=== PATIENT | male | born 1940 | race Caucasian/White ===

== ENCOUNTER 2018-06-16 18:08 | Emergency (ER) | payer OTHER ==
[2018-06-16 18:27] VITALS: BMI 24.3
--- NOTE | 2018-06-16 18:57 | PDOC ---
History of Present Illness - General Chief Complaint: Injury Stated Complaint: FALL Time Seen by Provider: 06/16/18 18:26 History Source: Patient, EMS Exam Limitations: No Limitations - History of Present Illness Initial Comments: 06/16/18 18:47 This is an 78 YOM with h/o bladder CA (prior surgery), prior craniotomy for "bleeding in the brain" from multiple falls, HTN, and CAD (states 3 vessels blocked and was supposed to have surgery on 06/21/18), and chronic unsteadiness on his feet (uses walker) who was BIBEMS for fall at his [facility]. He notes attempting to reach up and put something into a cabinet when he lost his balance (states possible d/t dizziness but he cannot remember exactly) and fell backwards hitting the right side of his face and the back of his head on the right. He notes a headache to the area that sustained the blow, but notes also that he always gets headaches at night. He denies recent f/c/n/v/d/c, n/t/w focally, vision changes, room-spinning dizziness, neck pain, or worsened difficulty thinking clearly or walking. He does not believe he passed out. He has suffered multiple falls in the past few months - more than his prior baseline. He does not know why this might be. His PCP is Jamie Colby, temporary [facility] provider is Dr. Thomas. He has been in the [facility] since the beginning of this month. Past History - Past Medical History Allergies/Adverse Reactions: Allergies Allergy/AdvReac Type Severity Reaction Status Date / Time hydralazine Allergy Verified 06/16/18 18:22 Home Medications: Ambulatory Orders Amlodipine Besylate 2.5 mg PO DAILY 06/16/18 Docusate Sodium 100 mg PO DAILY 06/16/18 Duloxetine HCl 20 mg PO HS 06/16/18 Enalapril Maleate [Vasotec] 10 mg PO DAILY 06/16/18 Ergocalciferol (Vitamin D2) [Vitamin D2] 50,000 unit PO WEEKLY 06/16/18 Famotidine 20 mg PO BID 06/16/18 Insulin Lispro [Humalog] 100 unit SQ ASDIR 06/16/18 Metoprolol Succinate 25 mg PO DAILY 06/16/18 Pregabalin [Lyrica] 25 mg PO Q8H 06/16/18 Sennosides [Senna] 8.6 mg PO DAILY 06/16/18 COPD: No Diabetes: Yes HTN: Yes - Suicide/Smoking/Psychosocial Hx Smoking History: Never smoked Have you smoked in the past 12 months: No Information on smoking cessation initiated: No Hx Alcohol Use: No Drug/Substance Use Hx: No Review of Systems - Review of Systems Able to Perform ROS?: Yes Constitutional: No: Chills, Fever, Unexplained wgt Loss HEENTM: No: Nose Congestion, Throat Pain Respiratory: No: Cough, Shortness of Breath Cardiac (ROS): No: Chest Pain, Palpitations ABD/GI: No: Constipated, Diarrhea, Nausea, Vomiting : No: Burning, Dysuria Musculoskeletal: No: Back Pain, Neck Pain Integumentary: No: Bruising, Rash Neurological: Yes: Headache, Other (loss of balance). No: Numbness, Tingling, Weakness Endocrine: No: Unexplained Weight Gain, Unexplained Weight Loss *Physical Exam - Vital Signs Last Vital Signs Temp Pulse Resp BP Pulse Ox 98.6 F 87 20 114/89 100 06/16/18 18:22 06/16/18 18:22 06/16/18 18:22 06/16/18 18:22 06/16/18 18:22 06/16/18 18:58 TRAUMA ASSESSMENT: protecting airway, equal bilateral breath sounds, no flail chest, abdomen soft, pelvis stable, no thigh hematoma, no step-off or deformity or ttp of C/T/L spine, no back hematoma, PERRLA, moving all extremities, no cephalohematoma, no raccoon eyes, no carreon sign, no hemotympanum on the right, cerumen occlusion of EAC on the left obstructing my view of the TM, no CSF rhinorrhea/otorrhea, no jaw malocclusion, negative tongue blade test. There are small abrasions to right ear lobe. There is a prior right temporal and parietal craniotomy scar which is healing well. GENERAL: nontoxic and well-appearing, nourished, A/Ox4, no acute distress, speaking in full sentences, answers questions appropriately HEENT: PERRLA, EOMI, moist mucous membranes, no posterior pharyngeal erythema, no tonsillar swelling or exudates, no cervical lymphadenopathy NECK: No midline ttp, no spinal stepoff or deformity, full ROM, supple CARDIOVASCULAR: Regular rate and rhythm, normal S1S2, no MGR, radial and DP pulses 2+ and symmetric, capillary refill <2 seconds, extremities warm and well- perfused Chest wall: Normal appearance, no rash, no bruising, no costal stepoff or deformity, nontender to compression LUNGS/RESPIRATORY: No respiratory distress, normal and symmetric chest movements during respirations, lungs CTA bilaterally, equal breath sounds, no cyanosis, no nail clubbing GI/ABDOMEN: Normal symmetric appearance, normoactive bowel sounds, soft, no tenderness to palpation, no midline pulsatile masses, no palpated organomegaly : No CVA tenderness BACK: No midline ttp or stepoff or deformity of thoracic or lumbar spine EXTREMITIES: distal pulses 2+, warm and well-perfused, no LE edema SKIN: Warm and dry, no pallor, no jaundice, no bruising, no rash, no skin breakdown, no cuts, no lesions NEUROLOGICAL: GCS 15, CN II-XII grossly intact, no truncal ataxia, gait is not tested, moving all extremities, 5/5 strength proximally and distally, no facial droop, no decreased sensation Medical Decision Making - Medical Decision Making 06/16/18 19:28 Pt p/w fall and head injury. Initial Vital Signs Temp Pulse Resp BP Pulse Ox 98.6 F 87 20 114/89 100 06/16/18 18:22 06/16/18 18:22 06/16/18 18:22 06/16/18 18:22 06/16/18 18:22 Exam: As noted in Physical Exam section DDX IBNLT: scalp contusion, simple abrasions, concussion, ICH, skull fracture, facial bone fracture W/U ordered: Head CT TX ordered: None at this time. Per [facility] C-spine imaging rule, C-spine XR is not indicated. 06/16/18 21:20 I spoke with Radiologist Dr. Hemphill. The patient has moderate-large bilateral chronic/subacute subdural hematomas. There is also a possible acute component to the SDH's as there is some stranding within the SDH areas. Minimal midline shift. 06/16/18 22:48 I spoke with [facility] neurosurgeon conventional mortgage underwriter, in agreement patient to be transferred to [facility] ED. Neurosurgeon Dr. Stuart accepts in transfer. I spoke with Dr. Martell in the [facility] ED. Patient to be sent via ALS per [facility] coordinating transfer. *DC/Admit/Observation/Transfer Diagnosis at time of Disposition: Subdural hematoma Fall Qualifiers: Encounter type: initial encounter Qualified Code(s): W19.XXXA - Unspecified fall, initial encounter Headache Qualifiers: Headache type: unspecified Headache chronicity pattern: unspecified pattern Intractability: not intractable Qualified Code(s): R51 - Headache - Discharge Dispostion Disposition: TRANSFER ACUTE CARE/OTHER HOSP Condition at time of disposition: Guarded - Referrals Referrals: Christopher Thomas MD [Non Staff, Medical] - - Patient Instructions - Post Discharge Activity - Transfer to Acute Care Facility Receiving Facility: [facility] Accepting Physician:: Dr. Stuart, Dr. Benito NIH Stroke Scale - Last Known Well Date/Time & Onset Date Last Known Well: 06/16/18 Time Last Known Well: 17:30 - Initial Evaluation Level of consciousness: Alert Ask patient the month and their age: Answers both correctly Ask patient to open & close eyes; make fist and let go: Obeys both correctly Best gaze (horizontal eye movement): Normal Visual field testing: No visual field loss Facial paresis (Show teeth/raise eyebrows/close eyes tight): Normal symmetrical movement Motor Function: Left Arm: Normal Motor Function: Right Arm: Normal (extends arm 90 (or 45) degrees for 10 seconds without drift Motor Function: Left Leg: Normal (extends leg 30 degrees for 5 seconds without drift) Motor Function: Right Leg: Normal (extends leg 30 degrees for 5 seconds without drift) Limb Ataxia: No ataxia Sensory(Use pinprick test arms,legs,trunk,face/side to side): Normal Best language (Describe picture, name items, read sentences): No Aphasia Dysarthria (read several words): Normal articulation Extinction and Inattention: No abnormality - Total Score NIH Stroke Scale Score: 0
[2018-06-16] MEDS ORDERED: SODIUM CHLORIDE 0.9% 500 ML INFUS.BAG IV ONE (19:07)
--- NOTE | 2018-06-16 20:21 | PDOC ---
Attending Attestation - Resident Resident Name: Fatmata Storm - ED Attending Attestation I have performed the following: I have examined & evaluated the patient, The case was reviewed & discussed with the resident, I agree w/resident's findings & plan, Exceptions are as noted - HPI HPI: 06/16/18 20:14 78-year-old male with history of bladder cancer, prior craniotomy for intracranial hemorrhage from multiple falls, hypertension, coronary disease presents with mechanical fall. The patient had loss his balance and fell and hit the right side of his head. Sustained a small abrasion to right ear lobe. No loss of conscious. Patient denies headache and otherwise feels well. [facility]. Patient has no complaints at this time. - Physicial Exam PE: 06/16/18 20:14 GENERAL: Awake, alert, and fully oriented, in no acute distress HEAD: No signs of trauma. Small abrasion to right ear lobe. No raccoon eyes. No carreon sign. No loose teeth. EYES: EOMI, sclera anicteric, conjunctiva clear ENT: Auricles normal inspection, hearing grossly normal, nares patent, oropharynx clear without exudates. Moist mucosa NECK: Normal ROM, supple. no c-spine tenderness. LUNGS: Breath sounds equal, clear to auscultation bilaterally. No wheezes, and no crackles HEART: Regular rate and rhythm, normal S1 and S2, no murmurs, rubs or gallops ABDOMEN: Soft, nontender, No guarding, no rebound. No masses EXTREMITIES: Normal range of motion, no edema. No clubbing or cyanosis. No cords, erythema, or tenderness NEUROLOGICAL: Cranial nerves II through XII grossly intact. Normal speech SKIN: Warm, Dry, normal turgor, no rashes or lesions noted. - Medical Decision Making 06/16/18 20:21 Vital Signs Temp Pulse Resp BP Pulse Ox 98.6 F 87 20 114/89 100 06/16/18 18:22 06/16/18 18:22 06/16/18 18:22 06/16/18 18:22 06/16/18 18:22 Pt well-appearing. +mechanical fall. Given age, fails palauan head CT rules. Obtain head Ct. If CT negative for acute process, pt can be sent back to [place]. 06/16/18 22:15 CAT scan demonstrates large right-sided moderate to large left-sided pain has flared subdural hematomas which are chronic or late subacute. There is a small amount of acute blood within each subdural fluid collection. There is an associated effacement of the frontoparietal sulki bilaterally. Consult neurosurgery. 06/16/18 22:57 Dr. Storm consulted [facility] Neurosurg. They will accept patient back to [facility].
[2018-06-16] MEDS ORDERED: ACETAMINOPHEN 325 MG TABLET (FP) ONE (22:21)
[2018-06-17 00:03] VITALS: BP 137/70; PULSE 74; TEMP 98
== END 2018-06-17 00:11 | disposition short-term general hospital (02) ==
LOC: JER 18:08
DX: S06.5X9A Traumatic subdural hemorrhage with loss of consciousness of unspecified duration, initial encounter (principal); S00.411A Abrasion of right ear, initial encounter; W18.39XA Other fall on same level, initial encounter; Y93.89 Activity, other specified; Y92.122 Bedroom in nursing home as the place of occurrence of the external cause; Y99.8 Other external cause status; Z91.81 History of falling; R26.81 Unsteadiness on feet; I10 Essential (primary) hypertension; E11.9 Type 2 diabetes mellitus without complications; Z79.4 Long term (current) use of insulin; R26.89 Other abnormalities of gait and mobility; Z99.89 Dependence on other enabling machines and devices; Z85.51 Personal history of malignant neoplasm of bladder; I25.10 Atherosclerotic heart disease of native coronary artery without angina pectoris; Z87.820 Personal history of traumatic brain injury
CPT/HCPCS: 70450-TC; 71045-TC-FY; 99285-25

== ENCOUNTER 2018-08-01 04:01 | Observation (INO) | payer OTHER ==
--- NOTE | 2018-08-01 04:19 | PDOC ---
Attending Attestation - Resident Resident Name: Fatou Villar - ED Attending Attestation I have performed the following: I have examined & evaluated the patient, The case was reviewed & discussed with the resident, I agree w/resident's findings & plan, Exceptions are as noted - HPI HPI: 08/01/18 05:03 Mr Vicente is an 78 yo M with h/o bladder CA (prior surgery), h/o multiple falls and head trauma s/p ICH requiring craniotomy, s/p recent presentation to this ER where he was found to have a large subdural hematoma (transferred to [facility] where pt refused surgical intervention), h/o HTN and CAD (has known 3 vessel disease ? plan for CABG who was BIBEMS s/p fall at [facility]. He awoke at 4am and was attempting to get to the bathroom He slipped and fell backwards, striking his head on a night stand No LOC No amnesia He was unable to get himself up Staff at facility alerted EMS 08/01/18 05:03 - Physicial Exam PE: 08/01/18 05:07 GENERAL: pt is awake and alert, answers questions appropriately HEENT: PERRLA, EOMI NECK: No midline ttp, no spinal stepoff or deformity, full ROM, supple CARDIOVASCULAR: Regular rate and rhythm, normal S1S2, no MGR, Chest wall: Normal appearance, no rash, no bruising, no costal stepoff or deformity, nontender to compression LUNGS/RESPIRATORY: No respiratory distress, normal and symmetric chest movements during respirations, lungs CTA bilaterally GI/ABDOMEN: Normal symmetric appearance, normoactive bowel sounds, soft BACK: No midline ttp or stepoff or deformity of thoracic or lumbar spine EXTREMITIES: distal pulses 2+, warm and well-perfused, no LE edema SKIN: (+) 3cm laceration to the occipital scalp, no active bleeding, wound is scabbed NEUROLOGICAL: GCS 15, CN II-XII grossly intact, gait is not tested, moving all extremities, 5/5 strength proximally and distally, no facial droop - Medical Decision Making 08/01/18 05:08 Pt has a h/o multiple falls Prior ICH x 2 (one for which pt had surgical intervention) Pt presents s/p mechanical fall with evidence of head injury Will do: Basic labs, including trop (pt per charting was supposed to have CABG) Head CT - eval for ICH Staple ?Boostrix 08/01/18 05:58 HISTORY: Fall with head trauma COMPARISON: None. FINDINGS: Vertebral bodies appear normal with no fracture There is some reversal of the normal lordotic curvature Airway is intact Soft Tissues are normal 08/01/18 05:59 Laboratory Tests 08/01/18 05:15 WBC 5.6 Hgb 10.6 L Hct 33.3 L Plt Count 388 08/01/18 06:16 FINDINGS: The study is positive for bilateral subdural hematomas. Right-sided subdural hematoma measures 1.4 cm lateral to the right frontal lobe and 1.5 cm lateral to the right parietal lobe. There is mixed density. Left subdural hematoma measures 8 mm transversely lateral to the temporal lobe and contains high and low-density components. There is been a previous right craniotomy. There is no deviation of midline structures. Ventricles are normal in caliber. IMPRESSION: Bilateral subdural hematomas status post craniotomy. Comparison with prior studies is recommended to evaluate for change Consult NSGY Pt is neurologically intact Review of prior CT reveals bilateral subdural hematomas Pt meds reviewed - no anticoagulants or anti platelets 08/01/18 06:17 08/01/18 06:[address] being sent for comparison Signed out pending review of prior CT
[2018-08-01] MEDS ORDERED: LIDOCAINE HCL 1%, 10 MG/ML (50 mL VIAL) SQ ONE (04:45)
[2018-08-01] MEDS ORDERED: DIPHTH,PERTUSS(ACELL),TET 0.5 ML DISP.SYRIN IM ONE ×2 (04:47→05:41)
[2018-08-01] MEDS ORDERED: LIDOCAINE 1%/EPI 1:100000 (20 ML MULTI DOSE VIAL) ONE (04:49)
[2018-08-01] MEDS ORDERED: ACETAMINOPHEN 325 MG TABLET (FP) PO ONE (04:59)
[2018-08-01] MEDS ORDERED: ACETAMINOPHEN 325 MG TABLET (FP) ONE (05:00)
--- NOTE | 2018-08-01 05:15 | PDOC ---
History of Present Illness - General Chief Complaint: Injury Stated Complaint: FALL Time Seen by Provider: 08/01/18 04:13 - History of Present Illness Initial Comments: 08/01/18 05:54 Patient is an 78 year old male with past medical history of Bladder cancer (s/p tumor resection), "brain bleed" from falls s/p craniectomy, HTN and CAD, was [facility]IBEMS from [facility], presented with right occipital scalp laceration after an unwitnessed fall at 3am this morning. Patient reported he tried to go the bathroom, where he slipped and fell, hitting his head on the night table. He denies loss of consciousness. A nurse immediately came and saw him on the floor to help him up. Ambulance was called. Patient was recently seen in 06/16 after a fall where he was found to have a moderate-large bilateral chronic/subacute subdural hematomas on CT scan. He was transferred to [facility], where patient declined surgery. Patient reports pain in the wound area, but denies any dizziness, confusion, weakness, shortness of breath. Past History - Past Medical History Allergies/Adverse Reactions: Allergies Allergy/AdvReac Type Severity Reaction Status Date / Time hydralazine Allergy Verified 08/01/18 05:24 Home Medications: Ambulatory Orders Amlodipine Besylate 5 mg PO DAILY 06/16/18 Docusate Sodium 300 mg PO HS 06/16/18 Duloxetine HCl 60 mg PO DAILY 06/16/18 Enalapril Maleate [Vasotec] 10 mg PO BID 06/16/18 Ergocalciferol (Vitamin D2) [Vitamin D2] 50,000 unit PO TH 06/16/18 Famotidine 20 mg PO BID 06/16/18 Metoprolol Succinate 25 mg PO DAILY 06/16/18 Sennosides [Senna] 8.6 mg PO HS 06/16/18 Acetaminophen [Tylenol -] 1,000 mg PO TID PRN 08/01/18 Amitriptyline HCl [Elavil -] 10 mg PO HS 08/01/18 Atorvastatin Ca [Lipitor] 80 mg PO HS 08/01/18 Mag Hydrox/Al Hydrox/Simeth [Mylanta Suspension -] 15 ml PO Q8H PRN 08/01/18 Magnesium Hydroxide [Milk of Magnesia] 15 ml PO Q6H PRN 08/01/18 Oxybutynin Chloride [Ditropan Xl] 5 mg PO TID 08/01/18 Polyethylene Glycol 3350 [Miralax (For Daily Use) -] 17 gm PO DAILY 08/01/18 Risperidone 1 mg PO BID 08/01/18 Tamsulosin HCl [Flomax] 0.4 mg PO HS 08/01/18 COPD: No Diabetes: Yes HTN: Yes - Suicide/Smoking/Psychosocial Hx Smoking History: Never smoked Have you smoked in the past 12 months: No Hx Alcohol Use: No Drug/Substance Use Hx: No Review of Systems - Review of Systems Constitutional: No: Chills, Fever, Malaise, Weakness HEENTM: No: Blurred Vision, Ear Pain, Nose Congestion, Difficulty Swallowing Respiratory: No: Cough, Shortness of Breath Cardiac (ROS): No: Chest Pain, Lightheadedness ABD/GI: No: Abdominal Distended, Constipated, Diarrhea, Nausea, Vomiting : No: Burning, Dysuria Musculoskeletal: No: Back Pain, Neck Pain Neurological: Yes: See HPI. No: Numbness, Seizure, Tingling, Weakness *Physical Exam - Vital Signs Last Vital Signs Temp Pulse Resp BP Pulse Ox 98.1 F 67 19 113/67 99 08/01/18 04:01 08/01/18 04:01 08/01/18 04:01 08/01/18 04:01 08/01/18 04:01 - Physical Exam Comments: 08/01/18 05:55 General: awake, alert, oriented, not in acute distress Head: +3cm laceration at right occipital area of the scalp HEENT: PERRLA, EOMI, sclerae anicteric, Neck:soft, supple, trachea midline, without LAD Lung:clear to auscultation bilaterally Heart: regular rate and rhythm, normal S1/S2, +systolic murmur Abdomen: soft, nontender, nondistended, NABS Ext: +2 pulses, no peripheral edema Neuro: AAOx4, CN II-XII intact, motor strength 5/5 on all extremities, sensation intact, normal FTNT, normal speech, gait not observed. Moderate Sedation - Procedure Monitoring Vital Signs: Procedure Monitoring Vital Signs Temperature 98.1 F 08/01/18 04:01 Pulse Rate 67 08/01/18 04:01 Respiratory Rate 19 12/04/18 04:01 Blood Pressure 113/67 12/04/18 04:01 O2 Sat by Pulse Oximetry (%) 99 08/01/18 04:01 Procedures - Laceration/Wound Repair Head Wound Length: 2.6 to 5.0 cm Wound Explored: clean Wound's Depth, Shape: superficial, linear Irrigated w/ Saline: Yes Betadine Prep: No Anesthesia: 1% Lidocaine w/ Epi Wound Debrided: moderate Wound Repaired With: Yina (3 iyna) ED Treatment Course - LABORATORY CBC & Chemistry Diagram: 08/01/18 05:15 08/01/18 05:15 Medical Decision Making - Medical Decision Making 08/01/18 05:04 Patient is an 78 year old male with past medical history of Bladder cancer (s/p tumor resection), "brain bleed" from falls s/p craniectomy, HTN and CAD, was BIBEMS from [facility], presented with right occipital scalp laceration after an unwitnessed fall at 3am this morning. CBC, CMP, PT/INR, trop Head CT without contrast Cervical CT without contrast Tylenol for pain 08/01/18 05:49 Laceration cleaned and stapled close, 3 yina placed Boostrix 0.5ml IM 08/01/18 06:44 Was able to speak with the radiologist on imaging spinal surgeon. Reported large subdural hematoma. He was unable to compare it with the old report in May. Head CT reports sent back again to be re-read and compared. For neurosurgery consult. Re-assessed patient. States he is feeling well and is asking for food to eat. Will keep NPO for now until cleared. *DC/Admit/Observation/Transfer - Referrals Referrals: Manish Winchester MD [Primary Care Provider] - - Patient Instructions - Post Discharge Activity
[2018-08-01 05:37] LABS: BASO % 1.3 % (0-2.0); HEMATOCRIT 33.3 % (35.4-49); HEMOGLOBIN 10.6 GM/dL (11.7-16.9); MCH 28.1 pg (25.7-33.7); MCHC 31.8 g/dl (32.0-35.9); MEAN CELL VOLUME 88.3 fl (80-96); MONO % 9.6 % (3.8-10.2); NEUT % 60.1 % (42.8-82.8); PLATELET COUNT 388 K/MM3 (134-434); RBC 3.77 M/mm3 (4.00-5.60); RDW 19.6 % (11.9-15.9); WHITE BLOOD COUNT 5.6 K/mm3 (4.0-10.0)
[2018-08-01 06:01] LABS: INR 1.1 (0.83-1.09)
[2018-08-01 06:24] LABS: ALK PHOS 191 U/L (45-117); ANION GAP 8 MMOL/L (8-16); BILIRUBIN,TOTAL 0.4 mg/dL (0.2-1); BLOOD UREA NITROGEN 17 mg/dL (7-18); CALCIUM 9.1 mg/dL (8.5-10.1); CHLORIDE 99 mmol/L (98-107); CO2 26 mmol/L (21-32); GLUCOSE,RANDOM 115 mg/dL (74-106); POTASSIUM 4.8 mmol/L (3.5-5.1); SGOT/AST 26 U/L (15-37); SGPT/ALT 20 U/L (13-61); SODIUM 133 mmol/L (136-145); TOT PROT 7.1 g/dl (6.4-8.2)
--- NOTE | 2018-08-01 07:08 | PDOC ---
*Physical Exam - Vital Signs Last Vital Signs Temp Pulse Resp BP Pulse Ox 98 F 71 17 112/65 99 08/01/18 13:08 08/01/18 13:08 08/01/18 13:08 08/01/18 13:08 08/01/18 07:30 <Penny Oswald - Last Filed: 08/01/18 15:35> - Vital Signs Last Vital Signs Temp Pulse Resp BP Pulse Ox 98.1 F 67 19 113/67 99 08/01/18 04:01 08/01/18 04:01 08/01/18 04:01 08/01/18 04:01 08/01/18 04:01 <Rebecca Rivas - Last Filed: 08/01/18 18:09> ED Treatment Course - LABORATORY CBC & Chemistry Diagram: 08/01/18 05:15 08/01/18 05:15 - ADDITIONAL ORDERS Additional order review: Laboratory Results 08/01/18 08/01/18 05:15 05:15 PT with INR 13.00 INR 1.10 H Sodium 133 L Potassium 4.8 Chloride 99 Carbon Dioxide 26 Anion Gap 8 BUN 17 Creatinine 1.0 Creat Clearance w eGFR > 60 Random Glucose 115 H Calcium 9.1 Total Bilirubin 0.4 AST 26 ALT 20 Alkaline Phosphatase 191 H Creatine Kinase 66 Troponin I 0.02 Total Protein 7.1 Albumin 3.0 L 08/01/18 05:15 RBC 3.77 L MCV 88.3 MCHC 31.8 L RDW 19.6 H MPV 7.0 L Neutrophils % 60.1 Lymphocytes % 24.0 Monocytes % 9.6 Eosinophils % 5.0 H Basophils % 1.3 - Medications Given in the ED: ED Medications Discontinued Medications Generic Name Dose Route Start Last Admin Trade Name Freq PRN Reason Stop Dose Admin Acetaminophen 975 mg 08/01/18 04:59 08/01/18 05:12 Tylenol - PO 08/01/18 05:00 975 mg ONCE ONE Administration Diphtheria/Tetanus/Acell Pertussis 0.5 ml 08/01/18 04:47 08/01/18 05:48 Boostrix - IM 08/01/18 04:48 0.5 ml .ONCE ONE Administration Lidocaine HCl 3 ml 08/01/18 04:45 08/01/18 05:12 Xylocaine 1% SQ 08/01/18 04:46 3 ml ONCE ONE Administration <Penny Oswald - Last Filed: 08/01/18 15:35> - LABORATORY CBC & Chemistry Diagram: 08/01/18 05:15 08/01/18 05:15 - ADDITIONAL ORDERS Additional order review: Laboratory Results 08/01/18 08/01/18 05:15 05:15 PT with INR 13.00 INR 1.10 H Sodium 133 L Potassium 4.8 Chloride 99 Carbon Dioxide 26 Anion Gap 8 BUN 17 Creatinine 1.0 Creat Clearance w eGFR > 60 Random Glucose 115 H Calcium 9.1 Total Bilirubin 0.4 AST 26 ALT 20 Alkaline Phosphatase 191 H Creatine Kinase 66 Troponin I 0.02 Total Protein 7.1 Albumin 3.0 L 08/01/18 05:15 RBC 3.77 L MCV 88.3 MCHC 31.8 L RDW 19.6 H MPV 7.0 L Neutrophils % 60.1 Lymphocytes % 24.0 Monocytes % 9.6 Eosinophils % 5.0 H Basophils % 1.3 - Medications Given in the ED: ED Medications Discontinued Medications Generic Name Dose Route Start Last Admin Trade Name Terri PRN Reason Stop Dose Admin Acetaminophen 975 mg 08/01/18 04:59 08/01/18 05:12 Tylenol - PO 08/01/18 05:00 975 mg ONCE ONE Administration Diphtheria/Tetanus/Acell Pertussis 0.5 ml 08/01/18 04:47 08/01/18 05:48 Boostrix - IM 08/01/18 04:48 0.5 ml .ONCE ONE Administration Lidocaine HCl 3 ml 08/01/18 04:45 08/01/18 05:12 Xylocaine 1% SQ 08/01/18 04:46 3 ml ONCE ONE Administration <Rebecca Rivas - Last Filed: 08/01/18 18:09> Medical Decision Making - Medical Decision Making 08/01/18 13:[address] Kilgore was sent via phone service. 08/01/18 15:35 Third call made to Dr. Kilgore, message left on office voicemail. <Penny Oswald - Last Filed: 08/01/18 15:35> - Medical Decision Making 08/01/18 07:04 78 year old male with history of traumatic subdural hematoma brought to ED for fall. Initial Vital Signs Temp Pulse Resp BP Pulse Ox 98.1 F 67 19 113/67 99 08/01/18 04:01 08/01/18 04:01 08/01/18 04:01 08/01/18 04:01 08/01/18 04:01 Initial vital signs within normal limits. Pt presented alert and orientedx3, neurologically intact. He only complained of headache. He denied LOC, vomiting. CBC WBC 5.6 K/mm3 (4.0-10.0) 08/01/18 05:15 RBC 3.77 M/mm3 (4.00-5.60) L 08/01/18 05:15 Hgb 10.6 GM/dL (11.7-16.9) L 08/01/18 05:15 Hct 33.3 % (35.4-49) L 08/01/18 05:15 MCV 88.3 fl (80-96) 08/01/18 05:15 MCH 28.1 pg (25.7-33.7) 08/01/18 05:15 MCHC 31.8 g/dl (32.0-35.9) L 08/01/18 05:15 RDW 19.6 % (11.9-15.9) H 08/01/18 05:15 Plt Count 388 K/MM3 (134-434) 08/01/18 05:15 MPV 7.0 fl (7.5-11.1) L 08/01/18 05:15 Absolute Neuts (auto) 3.4 K/mm3 (1.5-8.0) 08/01/18 05:15 Neutrophils % 60.1 % (42.8-82.8) 08/01/18 05:15 Lymphocytes % 24.0 % (8-40) 08/01/18 05:15 Monocytes % 9.6 % (3.8-10.2) 08/01/18 05:15 Eosinophils % 5.0 % (0-4.5) H 08/01/18 05:15 Basophils % 1.3 % (0-2.0) 08/01/18 05:15 Nucleated RBC % 0 % (0-0) 08/01/18 05:15 Mild anemia. No leukocytosis. CMP Sodium 133 mmol/L (136-145) L 08/01/18 05:15 Potassium 4.8 mmol/L (3.5-5.1) 08/01/18 05:15 Chloride 99 mmol/L (98-107) 08/01/18 05:15 Carbon Dioxide 26 mmol/L (21-32) 08/01/18 05:15 Anion Gap 8 MMOL/L (8-16) 08/01/18 05:15 BUN 17 mg/dL (7-18) 08/01/18 05:15 Creatinine 1.0 mg/dL (0.55-1.3) 08/01/18 05:15 Creat Clearance w eGFR > 60 (>60) 08/01/18 05:15 Random Glucose 115 mg/dL (74-106) H 08/01/18 05:15 Calcium 9.1 mg/dL (8.5-10.1) 08/01/18 05:15 Total Bilirubin 0.4 mg/dL (0.2-1) 08/01/18 05:15 AST 26 U/L (15-37) 08/01/18 05:15 ALT 20 U/L (13-61) 08/01/18 05:15 Alkaline Phosphatase 191 U/L (45-117) H 08/01/18 05:15 Creatine Kinase 66 IU/L (26-308) 08/01/18 05:15 Troponin I 0.02 ng/ml (0.00-0.05) 08/01/18 05:15 Total Protein 7.1 g/dl (6.4-8.2) 08/01/18 05:15 Albumin 3.0 g/dl (3.4-5.0) L 08/01/18 05:15 Mildly hyponatremic. - No prior to compare No ALY. Cardiac enzymes normal. CT C-spine report: no acute fracture, subluxations. 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 Pending their comparison. 08/01/18 10:20 CT head report: unchanged chronic subdural hematoma. Pt will be admitted for observation. 08/01/18 10:[address] Kilgore, jayjay, was told by office he is currently in surgery. 08/01/18 11:05 EKG performed at 1100: rate 59, regular rhythm, normal axis, normal intervals, T flattening in I, II, III, aVF, V4, V5, V6. No prior to compare. - No chest pain, normal cardiac enzymes x1 08/01/18 12:05 Dr. Medina spoke with Dr. Marcano, who stated they would like Massiel's recommendation for tele vs med/surg. Pending rec. 08/01/18 12:14 I spoke with the patient's daughter, Sharona Grant, over the phone about the patient's clinical condition and the need to observe him in the hospital. She agreed to the plan for care. Phone number [phone] 08/01/18 15:54 Dr. Kilgore paged multiple times with no response. Will admit the patient to med/surg. <Rebecca Rivas - Last Filed: 08/01/18 18:09> *DC/Admit/Observation/Transfer <Penny Oswald - Last Filed: 08/01/18 15:35> - Discharge Dispostion Decision to Admit order: Yes <Rebecca Rivas - Last Filed: 08/01/18 18:09> Diagnosis at time of Disposition: Fall, History of subdural hematoma - Discharge Dispostion Condition at time of disposition: Stable
--- NOTE | 2018-08-01 14:46 | HP ---
Admitting History and Physical - Primary Care Physician PCP: Christopher Thomas - Admission Chief Complaint: s/p fall History of Present Illness: er history 08/01/18 05:54 Patient is an 78 year old male with past medical history of Bladder cancer (s/p tumor resection), "brain bleed" from falls s/p craniectomy, HTN and CAD, was BIBEMS from [facility]isted Living Facility, presented with right occipital scalp laceration after an unwitnessed fall at 3am this morning. Patient reported he tried to go the bathroom, where he slipped and fell, hitting his head on the night table. He denies loss of consciousness. A nurse immediately came and saw him on the floor to help him up. Ambulance was called. Patient was recently seen in 06/16 after a fall where he was found to have a moderate-large bilateral chronic/subacute subdural hematomas on CT scan. He was transferred to [facility], where patient declined surgery. Patient reports pain in the wound area, but denies any dizziness, confusion, weakness, shortness of breath. Pt examined by me in ER Pt feels well has slight pain where he sustained laceration back of scalp He admits he slipped on his way to the bathroom No dizziness No LOC previous h/o subdural hematoma- refused surgery History Source: Patient Limitations to Obtaining History: No Limitations - Past Medical History Cardiovascular: Yes: HTN, Hyperlipdemia Renal/: Yes: BPH - Smoking History Smoking history: Never smoked Have you smoked in the past 12 months: No - Alcohol/Substance Use Hx Alcohol Use: No Home Medications - Allergies Allergies/Adverse Reactions: Allergies Allergy/AdvReac Type Severity Reaction Status Date / Time hydralazine Allergy Verified 08/01/18 05:24 - Home Medications Home Medications: Ambulatory Orders Amlodipine Besylate 5 mg PO DAILY 06/16/18 Docusate Sodium 300 mg PO HS 06/16/18 Duloxetine HCl 60 mg PO DAILY 06/16/18 Enalapril Maleate [Vasotec] 10 mg PO BID 06/16/18 Ergocalciferol (Vitamin D2) [Vitamin D2] 50,000 unit PO TH 06/16/18 Famotidine 20 mg PO BID 06/16/18 Metoprolol Succinate 25 mg PO DAILY 06/16/18 Sennosides [Senna] 8.6 mg PO HS 06/16/18 Acetaminophen [Tylenol -] 1,000 mg PO TID PRN 08/01/18 Amitriptyline HCl [Elavil -] 10 mg PO HS 08/01/18 Atorvastatin Ca [Lipitor] 80 mg PO HS 08/01/18 Mag Hydrox/Al Hydrox/Simeth [Mylanta Suspension -] 15 ml PO Q8H PRN 08/01/18 Magnesium Hydroxide [Milk of Magnesia] 15 ml PO Q6H PRN 08/01/18 Oxybutynin Chloride [Ditropan Xl] 5 mg PO TID 08/01/18 Polyethylene Glycol 3350 [Miralax (For Daily Use) -] 17 gm PO DAILY 08/01/18 Risperidone 1 mg PO BID 08/01/18 Tamsulosin HCl [Flomax] 0.4 mg PO HS 08/01/18 Review of Systems - Review of Systems Constitutional: denies: Chills, Fever Cardiovascular: denies: Chest Pain Integumentary: denies: Pruritis Neurological: reports: Headache. denies: Change in LOC, Change in Speech, Confusion, Dizziness, Numbness, Parasthesia, Seizure, Weakness Physical Examination Vital Signs: Vital Signs Temperature 98 F 08/01/18 13:08 Pulse Rate 71 08/01/18 13:08 Respiratory Rate 17 08/01/18 13:08 Blood Pressure 112/65 08/01/18 13:08 O2 Sat by Pulse Oximetry (%) 99 08/01/18 07:30 Constitutional: Yes: No Distress, Calm HENT: Yes: Other (yina on laceration -- right side of scalp) Cardiovascular: Yes: Regular Rate and Rhythm Respiratory: Yes: CTA Bilaterally Gastrointestinal: Yes: Normal Bowel Sounds, Soft. No: Tenderness Edema: No Neurological: Yes: Alert, Oriented. No: Tremors, Weakness ...Motor Strength: WNL Labs: CBC, BMP 08/01/18 05:15 08/01/18 05:15 Imaging - Results Chest X-ray: Image Reviewed Cat Scan: Report Reviewed EKG: Image Reviewed Problem List - Problems (1) Fall Code(s): W19.XXXA - UNSPECIFIED FALL, INITIAL ENCOUNTER (2) History of subdural hematoma Code(s): Z86.79 - PERSONAL HISTORY OF OTHER DISEASES OF THE CIRCULATORY SYSTEM (3) Headache Code(s): R51 - HEADACHE Qualifiers: Headache type: unspecified Headache chronicity pattern: unspecified pattern Intractability: not intractable Qualified Code(s): R51 - Headache (4) Subdural hematoma Code(s): S06.5X9A - TRAUM SUBDR HEM W LOC OF UNSP DURATION, INIT (5) HTN (hypertension) Code(s): I10 - ESSENTIAL (PRIMARY) HYPERTENSION Assessment/Plan PLAN repeat ct head in AM fall precautions PT eval Spoke with neurosurgeon-- no further interventions continue with meds
[2018-08-01 21:02] VITALS: BMI 22.7
[2018-08-01] MEDS ORDERED: PT OWN MED DRAWER 7, Y5N ONE (21:14)
[2018-08-01] MEDS: TAMSULOSIN HCL 0.4 MG CAP PO SCH (23:10)
[2018-08-01] MEDS: ATORVASTATIN CA 80 MG TABLET (FP) PO SCH (23:10)
[2018-08-01] MEDS: ENALAPRIL MALEATE 10 MG TABLET (FP) PO SCH (23:11)
[2018-08-02] MEDS: amLODIPine BESYLATE 5 MG TABLET (FP) PO SCH (09:27)
[2018-08-02] MEDS: ENALAPRIL MALEATE 10 MG TABLET (FP) PO SCH ×2 (09:27→21:47)
[2018-08-02] MEDS: metoPROLOL SUCCINATE 25 MG TAB.SR.24H (FP) PO SCH (09:31)
[2018-08-02] MEDS: DULoxetine HCL 30 MG CAPSULE.DR (FP) PO SCH (09:31)
--- NOTE | 2018-08-02 12:01 | PN ---
Progress Note (short form) - Note Progress Note: dizziness on getting up this AM no headaches, no blurry vision Vital Signs - 24 hr 08/01/18 08/01/18 08/02/18 18:50 21:00 02:00 Temperature Pulse Rate Pulse Rate [ 68 Radial] Respiratory 18 Rate Blood Pressure Blood Pressure 109/55 L [Left Arm] O2 Sat by Pulse 100 97 96 Oximetry (%) 08/02/18 08/02/18 08/02/18 05:29 09:00 16:01 Temperature 97.9 F 98.3 F 98.0 F Pulse Rate 68 75 86 Pulse Rate [ Radial] Respiratory 19 20 20 Rate Blood Pressure 119/65 112/54 L 100/61 Blood Pressure [Left Arm] O2 Sat by Pulse Oximetry (%) Current Medications Generic Name Dose Route Start Last Admin Trade Name Freq PRN Reason Stop Dose Admin Amlodipine Besylate 5 mg 08/02/18 10:00 08/02/18 09:27 Norvasc - PO Not Given DAILY SANCHO Atorvastatin Calcium 80 mg 08/01/18 22:00 08/01/18 23:10 Lipitor - PO 80 mg HS SANCHO Administration Duloxetine HCl 60 mg 08/02/18 10:00 08/02/18 09:31 Cymbalta - PO 60 mg DAILY SANCHO Administration Enalapril Maleate 10 mg 08/01/18 22:00 08/02/18 09:27 Vasotec - PO Not Given BID SANCHO Sodium Chloride 1,000 mls @ 83 mls/hr 08/02/18 12:15 08/02/18 12:25 Normal Saline - IV 83 mls/hr ASDIR SANCHO Administration Metoprolol Succinate 25 mg 08/02/18 10:00 08/02/18 09:31 Toprol Xl - PO 25 mg DAILY SANCHO Administration Tamsulosin HCl 0.4 mg 08/01/18 22:00 08/01/18 23:10 Flomax - PO 0.4 mg HS SANCHO Administration Constitutional: Yes: No Distress, Calm HENT: Yes: Other (yina on laceration -- right side of scalp) Cardiovascular: Yes: Regular Rate and Rhythm Respiratory: Yes: CTA Bilaterally Gastrointestinal: Yes: Normal Bowel Sounds, Soft. No: Tenderness Edema: No Neurological: Yes: Alert, Oriented. No: Tremors, Weakness ...Motor Strength: WNL plan repeat ct head noted-- no change fall precautions PT eval \ neurosurgeon eval -for dizziness iv fluids check orthostasis continue with meds Problem List - Problems (1) Fall Code(s): W19.XXXA - UNSPECIFIED FALL, INITIAL ENCOUNTER (2) HTN (hypertension) Code(s): I10 - ESSENTIAL (PRIMARY) HYPERTENSION (3) History of subdural hematoma Code(s): Z86.79 - PERSONAL HISTORY OF OTHER DISEASES OF THE CIRCULATORY SYSTEM (4) Headache Code(s): R51 - HEADACHE Qualifiers: Headache type: unspecified Headache chronicity pattern: unspecified pattern Intractability: not intractable Qualified Code(s): R51 - Headache (5) Subdural hematoma Code(s): S06.5X9A - TRAUM SUBDR HEM W LOC OF UNSP DURATION, INIT
[2018-08-02] MEDS: SODIUM CHLORIDE 1,000 ML IV SCH (12:25)
--- NOTE | 2018-08-02 12:44 | EKG ---
Test Reason : Blood Pressure : / mmHG Vent. Rate : 059 BPM Atrial Rate : 059 BPM P-R Int : 178 ms QRS Dur : 086 ms QT Int : 438 ms P-R-T Axes : 063 022 038 degrees QTc Int : 433 ms SINUS BRADYCARDIA INFERIOR INFARCT , AGE UNDETERMINED ABNORMAL ECG NO PREVIOUS ECGS AVAILABLE Confirmed by STEVO ROSAS MD ([id number]) on 08/02/2018 12:44:30 PM Referred By: Confirmed By:STEVO ROSAS MD
[2018-08-02] MEDS ORDERED: PT OWN MED DRAWER 7, Y5N ONE (21:35)
[2018-08-02] MEDS: TAMSULOSIN HCL 0.4 MG CAP PO SCH (21:46)
[2018-08-02] MEDS: ATORVASTATIN CA 80 MG TABLET (FP) PO SCH (21:46)
[2018-08-03] MEDS: SODIUM CHLORIDE 1,000 ML IV SCH (02:33)
[2018-08-03] MEDS ORDERED: PT OWN MED DRAWER 7, Y5N ONE (09:42)
[2018-08-03] MEDS: metoPROLOL SUCCINATE 25 MG TAB.SR.24H (FP) PO SCH (09:43)
[2018-08-03] MEDS: amLODIPine BESYLATE 5 MG TABLET (FP) PO SCH (09:43)
[2018-08-03] MEDS: ENALAPRIL MALEATE 10 MG TABLET (FP) PO SCH (09:43)
[2018-08-03] MEDS: DULoxetine HCL 30 MG CAPSULE.DR (FP) PO SCH (09:43)
--- NOTE | 2018-08-03 09:56 | PN ---
Progress Note (short form) - Note Progress Note: NEUROSURGERY CONSULT DICTATED Bladder cancer (s/p tumor resection), type II DM, h/o R craniotomy for SDH in , HTN and CAD presented with right occipital scalp laceration after an unwitnessed fall . Tried to go the bathroom, where he slipped and fell, hitting his head on the night table. He denies LOC. Recently seen in 06/16 after a fall where he was found to have persistent moderate-large bilateral chronic/ subacute subdural hematomas. Declined surgery at [facility] 06-15. Patient reports pain in the impact area. PE: AF, VSS HEENT- healed R frontoparieral incision; Neck- supple; Cor- RRR; Lungs- CTA B; Abd- benign; Ext- No sign of DVT CN- intact; Motor- 5/5 without drift; Sensation- intact LT, decreased distal LE vibration; DTR- hyporeflexia B; Cerebellar- intact FTN B Head CT - Chronic R > L SDH with cortical mass effect; subdural membrane R sided; subacute L sided SDH; R craniotomy Head CT - Stable chronic SDH with membrane; L sided SDH slightly less prominent Chronic SDH, neurologically non-focal As no acute change (in fact L SDH smaller), no acute neurosurgical intervention is recommended Pt does not want more surgery anyway Advised gait assistance/safety to avoid future falls
[2018-08-03] MEDS ORDERED: MAG HYDROX/AL HYDROX/SIMETH 30 ML UNIT-DOSE CUP PO PRN (11:16)
--- NOTE | 2018-08-03 12:24 | DS ---
Physical Examination Vital Signs: Vital Signs Temperature 99.2 F 08/03/18 08:27 Pulse Rate 79 08/03/18 08:27 Respiratory Rate 18 08/03/18 08:27 Blood Pressure 116/72 08/03/18 08:27 O2 Sat by Pulse Oximetry (%) 98 08/03/18 09:00 Constitutional: Yes: No Distress, Calm Cardiovascular: Yes: Regular Rate and Rhythm Respiratory: Yes: CTA Bilaterally Gastrointestinal: Yes: Normal Bowel Sounds, Soft. No: Tenderness Edema: No Labs: CBC, BMP 08/01/18 05:15 08/01/18 05:15 Discharge Summary Reason For Visit: SUBDURAL HEMATOMA,INJURY OF HEAD,FALL Current Active Problems Fall (Acute) HTN (hypertension) (Acute) History of subdural hematoma (Acute) Hospital Course: s/p fall- mechanical Has yina to scalp CT head showed old subdural hematoms- repeat CT same seen by Neurosurgery - no interventions pt does not wish for surgery anyway Stable for dc to NH for STR Condition: Stable - Instructions Referrals: Manish Winchester MD [Primary Care Provider] - Disposition: RETIREMENT FACILITY - Home Medications Comprehensive Discharge Medication List: Ambulatory Orders Amlodipine Besylate 5 mg PO DAILY 06/16/18 Docusate Sodium 300 mg PO HS 06/16/18 Duloxetine HCl 60 mg PO DAILY 06/16/18 Enalapril Maleate [Vasotec] 10 mg PO BID 06/16/18 Ergocalciferol (Vitamin D2) [Vitamin D2] 50,000 unit PO TH 06/16/18 Famotidine 20 mg PO BID 06/16/18 Metoprolol Succinate 25 mg PO DAILY 06/16/18 Sennosides [Senna] 8.6 mg PO HS 06/16/18 Acetaminophen [Tylenol -] 1,000 mg PO TID PRN 08/01/18 Amitriptyline HCl [Elavil -] 10 mg PO HS 08/01/18 Atorvastatin Ca [Lipitor] 80 mg PO HS 08/01/18 Mag Hydrox/Al Hydrox/Simeth [Mylanta Suspension -] 15 ml PO Q8H PRN 08/01/18 Magnesium Hydroxide [Milk of Magnesia] 15 ml PO Q6H PRN 08/01/18 Oxybutynin Chloride [Ditropan Xl] 5 mg PO TID 08/01/18 Polyethylene Glycol 3350 [Miralax (For Daily Use) -] 17 gm PO DAILY 08/01/18 Risperidone 1 mg PO BID 08/01/18 Tamsulosin HCl [Flomax] 0.4 mg PO HS 08/01/18
[2018-08-03 14:29] VITALS: PULSE 72; TEMP 97.8
[2018-08-03 17:04] VITALS: BP 120/80
--- NOTE | 2018-08-03 17:53 | CONS ---
DATE OF CONSULTATION: 08/03/2018 CHIEF COMPLAINT: Chronic bilateral subdural hematoma. HISTORY OF PRESENT ILLNESS: The patient is an 78-year-old male with a history of type 2 diabetes, bladder cancer, right craniotomy for subdural hematoma this April, hypertension, and coronary artery disease, who is status post another fall 2 days ago while walking to the bathroom late at night. He slipped and fell and hit the right side of the head on his night table. He had no loss of consciousness. He has some localized tenderness but not significant headaches. There is no nausea or vomiting. He stated that he has fallen about 9 times in the last 6 months. In April, he underwent right-sided craniotomy at [facility]. In May, he had another fall, was transferred back to [facility] and opted against surgery at that time. Presently, he has no headache. No nausea, vomiting. No seizure activities. He wants to go back to his nursing facility. PAST MEDICAL HISTORY: Significant for type 2 diabetes, bladder cancer, right craniotomy for subdural hematoma, hypertension, coronary artery disease, BPH. MEDICATIONS: Include Flomax, Vasotec, Cymbalta, Toprol-XL, Norvasc, Lipitor. ALLERGIES: HYDRALAZINE. SOCIAL HISTORY: He does not smoke or drink. 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 FAMILY HISTORY: Noncontributory. REVIEW OF SYSTEMS: Otherwise negative for major constitutional, head and neck, cardiovascular, pulmonary, gastrointestinal, genitourinary, endocrinological, neurological, and psychological problems except for the above. PHYSICAL EXAMINATION: Vital Signs: Temperature is 99.2. Blood pressure is 116/72 with pulse rate of 79. O2 saturation is 96% on room air. HEENT: Examination shows a healed right-sided scalp incision from the prior craniotomy. Neck: Supple with no carotid bruit. Coronary: Examination demonstrated a regular rhythm. Lungs: Clear bilaterally. Abdomen: Benign. Extremities: Examination shows no signs of DVT. Distal pulses are 1+, symmetric. Neurologic: He is awake and alert, oriented x3. Cranial nerve examination is intact 2-12. Motor examination shows 5/5 strength without drift. Sensory examination is intact to light touch. He has decreased distal lower extremity distal vibratory sensation consistent with his peripheral neuropathy. Deep tendon reflexes are 1+ throughout. There is no pathological long tract sign. Cerebellar examination shows intact [id number] examination. LABORATORY: Examination shows a white blood cell count of 5.6, hemoglobin is 10.6, and platelet count is 388,000. INR is 1.1. BUN is 17 and creatinine 1.0. Alkaline phosphatase 191. Troponin is 0.02. Albumin is 3. CT scan of the head from August 01 was compared to a prior scan of June 16. There is decreased left-sided subdural hematoma in the left parietal convexity. There is mild residual hyperdense component, however, less marked than previously. The right-sided chronic subdural hematoma is also noted with maximal diameter of approximately 18 mm. There is subdural membrane. There is cortical mass effect, right greater than left. There is no midline shift. There is no hydrocephalus. Followup CT scan on August 02 demonstrated stable findings of the chronic bilateral subdural hematoma. There is evidence of a right-sided craniotomy as previously. There is moderate cerebral atrophy. IMPRESSION: 1. Chronic biconvexity subdural hematoma, right greater than left. 2. History of right-sided craniotomy 3 months earlier. 3. Hypertension and coronary artery disease. 4. Type 2 diabetes with possible peripheral neuropathy. 5. Bladder cancer status post tumor resection. RECOMMENDATION: The patient presents with no significant headache or signs of increased intracranial pressure. He has chronic bilateral subdural hematoma. The left-sided subdural hematoma has actually decreased somewhat in size since his May scan. The patient had undergone craniotomy in April and appears to have residual subdural hematoma on the right side clearly. He had declined further surgical intervention reportedly when he was seen by Neurosurgery at [facility] in May. Presently, he has no focal neurological deficit. No neurosurgical intervention is recommended as a result. The patient should be very careful as regard to safety in terms of future falls. He should ask for any assistance while in the nursing facility. The patient expressed understanding of the above. The patient does understand if he sustains further fall, he may not be so jose next time; he can develop further acute hemorrhage into the chronic subdural hematoma. All questions were answered at bedside. The CT findings were discussed with the patient. No anticonvulsant is recommended. Raudel [id number]
== END 2018-08-03 21:37 ==
LOC: JER 04:01 → JERBED 10:21 → J6S 19:30
PROVIDERS: ADMIT Internal Medicine; ATTEND Internal Medicine
PROC: 3E0234Z Introduction of Serum, Toxoid and Vaccine into Muscle, Percutaneous Approach (ICD-10-PCS; principal; 2018-08-01)
PROC: 0HQ0XZZ Repair Scalp Skin, External Approach (ICD-10-PCS; 2018-08-01)
DX: S01.81XA Laceration without foreign body of other part of head, initial encounter (principal); W01.190A Fall on same level from slipping, tripping and stumbling with subsequent striking against furniture, initial encounter; Y93.01 Activity, walking, marching and hiking; Y92.122 Bedroom in nursing home as the place of occurrence of the external cause; Y99.8 Other external cause status; S06.5X0D Traumatic subdural hemorrhage without loss of consciousness, subsequent encounter; I25.10 Atherosclerotic heart disease of native coronary artery without angina pectoris; I10 Essential (primary) hypertension; E11.9 Type 2 diabetes mellitus without complications; Z85.51 Personal history of malignant neoplasm of bladder; Z86.79 Personal history of other diseases of the circulatory system; Z91.81 History of falling
CPT/HCPCS: 12002; 36415; 70450-TC; 71045-TC-FY; 72125-TC; 80053; 82550; 84484; 85025; 85610; 90471; 90715; 93005; 93010; 97116-GP; 97162-GP; 99284-25; G0378; J7030